=== PATIENT | male | born 1995 | race Caucasian/White ===

== ENCOUNTER 2017-01-08 19:35 | Emergency (ER) | payer OTHER ==
[~2017-01-08] VITALS: Ht 175.3 cm; Wt 70.3 kg
--- NOTE | 2017-01-08 19:49 | ED Upper Extremity ---
General Chief Complaint: Upper Extremity Stated Complaint: L WRIST INJ Source: patient Exam Limitations: no limitations History of Present Illness Time seen by provider: 19:47 Initial Comments To ER with c/o left wrist pain. He was playing basketball when he tripped and fell landing on left arm and now has left wrist pain Onset: just prior to arrival Severity: moderate Pain/Injury Location: left wrist Method of Injury: fell Modifying Factors: Improves With Movement Allergies and Home Medications Allergies Coded Allergies: No Known Drug Allergies (Unverified , 01/08/17) Home Medications No Active Prescriptions or Reported Meds Constitutional: see HPI EENTM: see HPI Respiratory: no symptoms reported Cardiovascular: no symptoms reported Genitourinary: no symptoms reported Musculoskeletal: see HPI Skin: no symptoms reported Psychiatric/Neurological: No Symptoms Reported Past Omebpki-Hmbsmn-Bukmud Hx Patient Social History Recent Foreign Travel: No Contact w/Someone Who Travel: No Physical Exam Vital Signs Vital Sign - Last 12Hours 01/08/17 19:45 Temp 98.0 Pulse 95 Resp 16 B/P (MAP) 119/82 Pulse Ox 96 O2 Delivery Room Air Capillary Refill : General Appearance: WD/WN, no apparent distress HEENT: PERRL/EOMI, normal ENT inspection Neck: non-tender, full range of motion Respiratory: normal breath sounds, no respiratory distress, no accessory muscle use Shoulder: normal inspection, non-tender Elbow/Forearm: normal inspection, non-tender, Left Hand: Left, limited ROM, soft tissue tenderness, swelling (capillary refill of fingertips is less than 3 seconds. Sensation is intact. Swelling around the wrist is minimal.) Neurologic/Psychiatric: alert, normal mood/affect, oriented x 3 Skin: normal color, warm/dry Progress/Results/Core Measures Results/Orders My Orders Orders - MEENAKSHI KAUR APRN Wrist, Left, 3 Views Or More (01/08/17 19:46) Hydrocodone/Ap[place] 5/325 Tablet (Lortab 5 (01/08/17 20:15) Medications Given in ED Current Medications Medications Dose Ordered Sig/Kevan Route Start Time Stop Time Status Last Admin Dose Admin Acetaminophen/ Hydrocodone Bitart 1 tab ONCE ONCE PO 01/08/17 20:15 01/08/17 20:16 DC 01/08/17 20:09 1 TAB Vital Signs/I&O Vital Sign - Last 12Hours 01/08/17 19:45 Temp 98.0 Pulse 95 Resp 16 B/P (MAP) 119/82 Pulse Ox 96 O2 Delivery Room Air Diagnostic Imaging Diagonstic Imaging: Xray Comments NAME: SALAS ASIF [facility] REC#: [id number] PT STATUS: REG ER : 1995 PHYSICIAN: MEENAKSHI KAUR APRN ADMIT DATE: 01/08/17/ER Draft Date of Exam:01/08/17 WRIST, LEFT, 3 VIEWS OR MORE INDICATION: Fall. Wrist pain. COMPARISON: None FINDINGS: 3 radiographic views of the left wrist were obtained. There is curvilinear lucency extending in a transverse fashion to the distal radius consistent with acute nondisplaced fracture. There is no appreciable displacement or intra-articular extension. Note is also made of nondisplaced transverse oriented fracture of the ulnar styloid. Radiocarpal joint space is maintained. Soft tissue structures are unremarkable. No unexpected radiopaque foreign bodies are identified. IMPRESSION: 1. Acute fractures of the distal left radius and ulna as described above. Dictated on workstation # [id number] Dict: 01/08/171954 Trans: 01/08/171999 [facility] [id number] Interpreted by: MANNY OLSON MD Electronically signed by: Departure Impression Impression: Primary Impression: Left wrist fracture Disposition: 01 HOME, SELF-CARE Condition: Stable Departure-Patient Inst. Decision time for Depature: 20:02 Referrals: CIARA LOPEZ MD, JONATHAN MD IPSEN, BRIAN J MD ,LOCAL PHYSICIAN (PCP) Primary Care Physician LESLEY TAYLOR MD, ROBERT F DO ZAFUTA, MICHAEL P MD Patient Instructions: Wrist Fracture (DC) Add. Discharge Instructions: 1. Keep splint on at all times until orthopedics advises otherwise 2. Follow up with an orthopedic surgeon of your choosing within 1-2 weeks 3. Pain medication as directed All discharge instructions reviewed with patient and/or family. Voiced understanding. Scripts Hydrocodone/Acetaminophen ([place] 5-325 Tablet) 1 Each Tablet 1 EACH PO Q4H Y for PAIN-SEVERE TO BREAKTHROUGH, #20 TAB Prov: MEENAKSHI KAUR APRN 01/08/17 MEENAKSHI KAUR APRN Jan 08, 2017 19:49
--- NOTE | 2017-01-08 20:01 | Diagnostic Imaging Report ---
INDICATION: Fall. Wrist pain. COMPARISON: None FINDINGS: 3 radiographic views of the left wrist were obtained. There is curvilinear lucency extending in a transverse fashion to the distal radius consistent with acute nondisplaced fracture. There is no appreciable displacement or intra-articular extension. Note is also made of nondisplaced transverse oriented fracture of the ulnar styloid. Radiocarpal joint space is maintained. Soft tissue structures are unremarkable. No unexpected radiopaque foreign bodies are identified. IMPRESSION: 1. Acute fractures of the distal left radius and ulna as described above. Dictated by: Dictated on workstation # [id number]
[2017-01-08] MEDS ORDERED: HYDROcodone/APAP 5 MG/325 MG (LORTAB) TAB PO ONE (20:15)
[2017-01-08] MEDS ORDERED: HYDR-757 PO (20:25)
[2017-01-08 20:33] VITALS: BP 119/82
== END 2017-01-08 20:33 | disposition home or self-care (01) ==
LOC: ER 19:38
DX: S52.502A Unspecified fracture of the lower end of left radius, initial encounter for closed fracture (principal); S52.602A Unspecified fracture of lower end of left ulna, initial encounter for closed fracture; W01.0XXA Fall on same level from slipping, tripping and stumbling without subsequent striking against object, initial encounter
CPT/HCPCS: 24675; 29125; 73110